=== PATIENT | female | born 1955 | race Caucasian/White ===

== ENCOUNTER 2023-08-23 21:39 | Inpatient (IN) | payer MEDICARE ==
[2023-08-24] MEDS ORDERED: Ondansetron PF 4 MG/2 ML Vial IVP PRN (01:30)
[2023-08-24] MEDS ORDERED: Acetaminophen 650 MG Suppository PR PRN (01:30)
[2023-08-24] MEDS ORDERED: Ondansetron ODT 4 MG TAB PO PRN (01:30)
[2023-08-24 01:47] VITALS: BMI 19.4
[2023-08-24 04:03] LABS: #Basophils Less than 0.03 10x3/uL (0.0-0.2); #Eosinphils Less than 0.03 10x3/uL (0.0-0.7); %Basophils 0.2 % (0.0-1.0); %Lymphocytes 8.9 % (21.0-51.0); %Monocytes 0.4 % (0.0-10.0); %Neutrophils 90.2 % (42.0-75.0); Hematocrit 38.5 % (36.0-47.0); Hemoglobin 12.8 g/dL (12.0-16.0); Mean Corpuscular HGB CONC 33.2 g/dL (32.0-36.0); Mean Corpuscular Hemoglobin 32.6 pg (27.0-31.0); Mean Platelet Volume 11.2 fL (7.4-10.4); Platelet Count 204 10x3/uL (130-400); RBC Distribution Width 12.6 % (11.5-14.5); Red Blood Cell (RBC) Count 3.93 mill/uL (4.20-5.40)
[2023-08-24 04:42] LABS: Anion Gap 16 mmol/L (10-20); BUN (Urea Nitrogen) 14 mg/dL (9.8-20.1); Calc. Creatinine Clearance 46 mL/min (70-130); Carbon Dioxide 23 mmol/L (23-31); Chloride 104 mmol/L (98-107); Estimated GFR 60; Glucose 453 mg/dL (80-115); Potassium 4.2 mmol/L (3.5-5.1); Sodium 139 mmol/L (136-145)
[2023-08-24] MEDS ORDERED: Dextrose 5% in Water 1,000 ML IV PRN (05:27)
[2023-08-24] MEDS ORDERED: Glucagon 1 MG/ML KIT IM PRN (05:27)
[2023-08-24] MEDS ORDERED: Dextrose 50% Abboject 50 ML SYRINGE SLOW IVP PRN (05:27)
[2023-08-24] MEDS: Insulin Glargine 30 UNITS/0.3 ML VIAL SC SCH (06:08)
[2023-08-24] MEDS: HumaLOG 300 UNITS/3 ML VIAL SC PRN ×2 (06:09→12:19)
[2023-08-24] MEDS ORDERED: Non-Formulary Item 1 EACH (Mv-Mn/Folic Ac/Calcium/Vit K1 [Women's 50 Plus Multivit Tab] 1 PO SCH (10:00)
[2023-08-24] MEDS ORDERED: Gabapentin 300 MG CAP PO SCH (10:00)
[2023-08-24] MEDS ORDERED: Non-Formulary Item 1 EACH (Magnesium Oxide [Mag-Oxide] 200 MG Tablet) PO SCH (10:00)
[2023-08-24] MEDS ORDERED: Non-Formulary Item 1 EACH (Glucos Sul 2kcl/Msm/Chond/C/Mn [Glucosamine Chondroitin Cap] 1 PO SCH (10:00)
[2023-08-24] MEDS: Metoprolol Tartrate 25 MG TAB PO SCH (11:18)
[2023-08-24] MEDS: clonazePAM 1 MG TAB PO SCH ×2 (11:18→23:25)
[2023-08-24 14:12] LABS: Bilirubin Negative (Negative); Blood, Urine Trace (Negative); Glucose, Urine (Dipstick) >=1000 mg/dL (Negative); Ketone, Urine Negative (Negative); Leukocyte Negative (Negative); Nitrite Negative (Negative); Protein, Urine (Dipstick) 100 mg/dL (Neg-Trace); Urobilinogen 0.2 mg/dL (Less than 2)
[2023-08-24 14:14] LABS: Bacteria/HPF None Seen HPF (None Seen); Clarity Clear (Clear); RBC/HPF 0-3 HPF (0-3); Squamous Epithelial 0-3 HPF (0-3)
[2023-08-24 15:23] LABS: Hematocrit 37.1 % (36.0-47.0); Hemoglobin 12.7 g/dL (12.0-16.0)
[2023-08-24] MEDS: GoLYTELY 4,000 ml Bottle PO SCH (18:11)
[2023-08-24] MEDS ORDERED: clonazePAM 1 MG TAB PO SCH (21:00)
[2023-08-24] MEDS: Gabapentin 300 MG CAP PO SCH (23:24)
[2023-08-24] MEDS: Atorvastatin Calcium 40 MG TAB PO SCH (23:24)
[2023-08-24] MEDS: Acetaminophen 325 MG TAB PO PRN (23:28)
[2023-08-25 04:34] VITALS: TEMP 97.7
[2023-08-25 05:18] LABS: #Basophils 0.03 10x3/uL (0.0-0.2); %Basophils 0.3 % (0.0-1.0); %Eosinophils 0.8 % (0.0-10.0); %Lymphocytes 32.9 % (21.0-51.0); %Monocytes 5.8 % (0.0-10.0); Hematocrit 37.7 % (36.0-47.0); Hemoglobin 12.4 g/dL (12.0-16.0); Mean Corpuscular HGB CONC 32.9 g/dL (32.0-36.0); Mean Corpuscular Hemoglobin 32.4 pg (27.0-31.0); Mean Corpuscular Volume 98.4 fL (78.0-98.0); Mean Platelet Volume 10.9 fL (7.4-10.4); Platelet Count 215 10x3/uL (130-400); RBC Distribution Width 13.1 % (11.5-14.5); Red Blood Cell (RBC) Count 3.83 mill/uL (4.20-5.40)
[2023-08-25 05:39] LABS: ALT (SGPT) 20 U/L (8-55); AST (SGOT) 18 U/L (5-34); Albumin 3.1 g/dL (3.4-4.8); Alkaline Phosphatase 89 U/L (40-110); Anion Gap 12 mmol/L (10-20); BUN (Urea Nitrogen) 15 mg/dL (9.8-20.1); Bilirubin, Total 0.4 mg/dL (0.2-1.2); Calc. Creatinine Clearance 58 mL/min (70-130); Calcium 9.1 mg/dL (7.8-10.44); Carbon Dioxide 29 mmol/L (23-31); Chloride 104 mmol/L (98-107); Estimated GFR 79; Globulin 3.6 g/dL (2.4-3.5); Glucose 174 mg/dL (80-115); Potassium 3.2 mmol/L (3.5-5.1); Protein, Total 6.7 g/dL (5.8-8.1); Sodium 142 mmol/L (136-145)
[2023-08-25] MEDS ORDERED: Lidocaine 2% PF 5 ML VIAL ONE (08:06)
[2023-08-25] MEDS ORDERED: PROPOFOL 20 ML ONE ×2 (08:06→08:32)
[2023-08-25] MEDS ORDERED: Ondansetron HCl/PF 4 MG/2 ML Vial IVP PRN (08:12)
[2023-08-25] MEDS ORDERED: Glucosamine Chondroitin Cap PO SCH (09:00)
[2023-08-25 09:37] VITALS: BP 139/78
[2023-08-25] MEDS ORDERED: Methocarbamol 500 MG TAB PO SCH (10:00)
[2023-08-25] MEDS: Ascorbic Acid 500 mg Chewable Tablet PO SCH (10:40)
[2023-08-25] MEDS: Methocarbamol 500 MG TAB PO SCH (10:42)
[2023-08-25] MEDS: Multivit, Therapeutic 1 TAB PO SCH (10:42)
[2023-08-25] MEDS: Magnesium Oxide 400 MG TAB PO SCH (10:44)
[2023-08-25] MEDS ORDERED: Potassium Chloride 20 MEQ TAB PO SCH (11:30)
[2023-08-25] MEDS ORDERED: Docusate 100 MG CAP PO SCH ×2 (13:00→21:00)
== END 2023-08-25 14:00 | disposition home or self-care (01) | DRG 387 ==
LOC: MSONC 08-24 00:07
PROVIDERS: ADMIT Student in an Organized Health Care Education/Training Program; ATTEND Internal Medicine
PROC: 0DBE8ZX Excision of Large Intestine, Via Natural or Artificial Opening Endoscopic, Diagnostic (ICD-10-PCS; principal; 2023-08-25)
DX: K51.911 Ulcerative colitis, unspecified with rectal bleeding (principal); K62.4 Stenosis of anus and rectum; Z88.2 Allergy status to sulfonamides; Z88.8 Allergy status to other drugs, medicaments and biological substances; Z79.899 Other long term (current) drug therapy; Z79.4 Long term (current) use of insulin; G25.5 Other chorea; E11.65 Type 2 diabetes mellitus with hyperglycemia; E78.5 Hyperlipidemia, unspecified; E87.6 Hypokalemia
CPT/HCPCS: 36415; 36416; 80048; 80053; 81003; 81015; 85025; 88305; J1815; J2001; J2704